=== PATIENT | female | born 1935 | race Two or more races ===

== ENCOUNTER 2020-06-17 04:04 | Inpatient (IN) | payer MEDICARE, OTHER ==
[~2020-06-17] VITALS: Ht 157.5 cm; Wt 99.0 kg
[2020-06-17] VITALS (7 sets, daily range): BP systolic 87–106; BP diastolic 46–88
[2020-06-17] MEDS ORDERED: SODIUM BICARBONATE 8.4% INJ 50ML SYRINGE ONE (04:27)
[2020-06-17] MEDS ORDERED: SODIUM BICARBONATE 8.4 % INJ 50ML VIAL IV ONE ×2 (04:30→07:00)
[2020-06-17 04:40] LABS: Basophils # (auto) 0 10 ^3/uL (0-0.2); Basophils % (auto) 0.2 % (0.0-2.0); Eosinophils # (auto) 0 10 ^3/uL (0-0.8); Eosinophils % (auto) 0.1 % (0.0-7.0); Hematocrit 41.9 % (36.0-46.0); Hemoglobin 13.9 g/dL (12.2-16.2); Lymphocytes # (auto) 1.1 10 ^3/uL (0.4-5.4); Lymphocytes % (auto) 16.4 % (10.0-50.0); Mean Corpuscular Hemoglobin 31.9 pg (28.0-32.0); Mean Corpuscular Hgb Conc. 33.2 g/dL (32.0-36.0); Mean Corpuscular Volume 95.9 fL (80.0-100.0); Monocytes # (auto) 0.5 10 ^3/uL (0-1.3); Monocytes % (auto) 7.1 % (0.0-12.0); Neutrophils # (auto) 5.1 10 ^3/uL (1.6-8.6); Neutrophils % (auto) 76.2 % (37.0-80.0); Nucleated Red Blood Cells % 0.1 %; Platelet Count (auto) 164 10^3/uL (140-450); Red Blood Cells 4.37 10^6/uL (4.0-5.20); Red Cell Distribution Width 13.4 % (11.8-14.3); White Blood Cell 6.6 10^3/uL (4.4-10.8)
[2020-06-17 05:04] LABS: Albumin 3.2 g/dL (3.4-5.0)
[2020-06-17 05:05] LABS: Lactic Acid w/Reflex 9.1 mmol/L (0.4-2.0)
[2020-06-17 05:09] LABS: BUN/Creatinine Ratio 14.8; Bilirubin, Total 0.3 mg/dL (0.2-1.0); Total Protein 8.1 g/dL (6.4-8.2)
[2020-06-17 05:13] LABS: INR 1.06 (0.9-1.15); Partial Thromboplastin Time 31.2 sec (23.0-31.2)
[2020-06-17] MEDS ORDERED: AZITHROMYCIN 500MG/ 250ML 250 ML IV ONE (07:00)
[2020-06-17] MEDS ORDERED: cefTRIAXone 1GM/50ML D5W 50 ML IV ONE (07:00)
[2020-06-17] MEDS ORDERED: DexAMETHasone SOD PHOS 10MG/1ML VIAL INJ IV ONE (07:00)
[2020-06-17] MEDS ORDERED: ENOXAPARIN SOD 80 MG/0.8ML SYRINGE SC ONE (07:00)
[2020-06-17] MEDS ORDERED: ZINC SULFATE 220mg CAP or TAB PO ONE (07:00)
[2020-06-17] MEDS ORDERED: ASCORBIC ACID 500 MG TAB PO ONE (07:00)
[2020-06-17 07:48] LABS: Urine Bacteria FEW /hpf (None Seen); Urine Blood 1+ /uL (Negative); Urine Specific Gravity 1.022 (1.001-1.035); Urine WBC 1 /hpf (0 - 5)
[2020-06-17] MEDS ORDERED: NITROGLYCERIN 0.4 MG SL TAB SL PRN (09:00)
[2020-06-17] MEDS ORDERED: MORPHINE SULF INJ 2 MG/ML SYRINGE 1ML IV PRN (09:00)
[2020-06-17] MEDS ORDERED: ACETAMINOPHEN 500 MG TAB PO PRN (09:45)
[2020-06-17] MEDS ORDERED: diphenhdrAMINE HCL 50 MG/1 ML VL IV PRN (09:45)
[2020-06-17] MEDS ORDERED: levoFLOXacin 500MG 100 ML IV ONE (09:45)
[2020-06-17] MEDS ORDERED: ONDANSETRON HCL 4 MG/2 ML VIAL IV PRN (09:45)
[2020-06-17] MEDS ORDERED: DEXTROSE (50%) 50ML SYRG IV PRN (09:45)
[2020-06-17] MEDS ORDERED: ALBUTEROL SULF HFA 90MCG INH 200DOSE IN PRN (09:45)
[2020-06-17] MEDS ORDERED: REMDESIVIR PER PHARMACY 0 ML IV SCH (09:45)
[2020-06-17] MEDS ORDERED: BUDESONIDE (INHALATION) 180 MCG IH IN SCH (10:00)
[2020-06-17] MEDS ORDERED: ENOXAPARIN SOD 40 MG/0.4 ML SYRINGE SC SCH (10:00)
[2020-06-17] MEDS ORDERED: FAMOTIDINE (10MG/ML) 2ML VL IV SCH (10:00)
[2020-06-17] MEDS ORDERED: FAMOTIDINE 20 MG TAB PO SCH (10:00)
[2020-06-17] MEDS ORDERED: levoFLOXacin 250MG 50 ML IV SCH (10:00)
[2020-06-17] MEDS: DexAMETHasone SOD PHOS 10MG/1ML VIAL INJ IV SCH (11:16)
[2020-06-17] MEDS: ZINC SULFATE 220mg CAP or TAB PO SCH (11:23)
[2020-06-17] MEDS: FAMOTIDINE (10MG/ML) 2ML VL IV SCH (11:23)
[2020-06-17] MEDS: ASCORBIC ACID 1,000 MG TAB PO SCH (11:25)
[2020-06-17] MEDS: CHOLECALCIFEROL (VITD3) 2,000 UNIT CAP/TAB PO SCH (11:25)
[2020-06-17] MEDS: FLORASTOR (S. BOULARDII) 250 MG CAP PO SCH ×2 (11:25→21:58)
[2020-06-17] MEDS ORDERED: LACTULOSE 20Gm/30ML SOLN PO PRN (11:45)
[2020-06-17] MEDS: ACCU-CHEK COMFORT CURVE STRIP VI SCH ×3 (11:58→21:50)
[2020-06-17] MEDS: InsuLIN REG 1unit/0.01ml Soln (100units/ml) SC SCH ×3 (11:59→21:58)
[2020-06-17] MEDS: ALBUTEROL SULF 2.5 MG/0.5ML(0.5%) NEB SOLN NEB PRN (18:54)
[2020-06-17] MEDS: BUDESONIDE (INHALATION) 0.5 MG/2 ML NEB NEB SCH (18:54)
[2020-06-18] VITALS (40 sets, daily range): BP systolic 89–156; BP diastolic 47–86
[2020-06-18] MEDS ORDERED: NOREPINEPHRINE 8 MG/250ML KIT 0 ML IV ONE (01:24)
[2020-06-18] MEDS: NOREPINEPHRINE 8 MG/250ML KIT 250 ML IV SCH (01:35)
[2020-06-18] MEDS ORDERED: SODIUM CHLORIDE 0.9% 1,000 ML IV ONE (03:00)
[2020-06-18] MEDS ORDERED: HYDROCORTISONE SOD SUCC 100 MG/2ML INJ VIAL IV ONE (03:00)
[2020-06-18] MEDS ORDERED: HEPARIN SODIUM (PORCINE) 5000 UNITS/ML 1ML VIAL SC SCH (06:00)
[2020-06-18 06:02] LABS: Basophils # (auto) 0 10 ^3/uL (0-0.2); Eosinophils # (auto) 0 10 ^3/uL (0-0.8); Hematocrit 39.1 % (36.0-46.0); Hemoglobin 13.3 g/dL (12.2-16.2); Lymphocytes # (auto) 0.6 10 ^3/uL (0.4-5.4); Lymphocytes % (auto) 6.8 % (10.0-50.0); Mean Corpuscular Hemoglobin 31.5 pg (28.0-32.0); Mean Corpuscular Hgb Conc. 33.9 g/dL (32.0-36.0); Mean Corpuscular Volume 92.8 fL (80.0-100.0); Monocytes # (auto) 0.6 10 ^3/uL (0-1.3); Monocytes % (auto) 6.7 % (0.0-12.0); Neutrophils # (auto) 7.5 10 ^3/uL (1.6-8.6); Neutrophils % (auto) 86.5 % (37.0-80.0); Nucleated Red Blood Cells % 0.1 %; Platelet Count (auto) 180 10^3/uL (140-450); Red Blood Cells 4.22 10^6/uL (4.0-5.20); Red Cell Distribution Width 13.1 % (11.8-14.3); White Blood Cell 8.6 10^3/uL (4.4-10.8)
[2020-06-18 06:22] LABS: Albumin 2.4 g/dL (3.4-5.0); Calcium 7.4 mg/dL (8.5-10.1); Lactic Acid w/Reflex 2.6 mmol/L (0.4-2.0); Potassium 3.2 mmol/L (3.5-5.1)
[2020-06-18 06:26] LABS: BUN/Creatinine Ratio 24.2; Bilirubin, Total 0.4 mg/dL (0.2-1.0); Total Protein 6.6 g/dL (6.4-8.2)
[2020-06-18] MEDS: BUDESONIDE (INHALATION) 0.5 MG/2 ML NEB NEB SCH ×2 (06:40→19:05)
[2020-06-18] MEDS ORDERED: IVERMECTIN 3 MG TAB PO ONE (07:00)
[2020-06-18] MEDS: ACCU-CHEK COMFORT CURVE STRIP VI SCH ×4 (07:00→22:35)
[2020-06-18] MEDS: InsuLIN REG 1unit/0.01ml Soln (100units/ml) SC SCH ×4 (07:00→22:39)
[2020-06-18] MEDS ORDERED: MORPHINE SULF INJ 2 MG/ML SYRINGE 1ML IV ONE (07:30)
[2020-06-18] MEDS ORDERED: POTASSIUM CHLORIDE 40 MEQ, LIDOCAINE 1% (LOCAL ANESTH.) 4 ML in SODIUM CHL 0.9% 250 ML IV ONE (08:30)
[2020-06-18] MEDS ORDERED: REMDESIVIR PER PHARMACY 0 ML IV SCH (09:00)
[2020-06-18] MEDS ORDERED: cefTRIAXone 1GM/50ML D5W 50 ML IV SCH (09:00)
[2020-06-18] MEDS ORDERED: AZITHROMYCIN 500MG/ 250ML 250 ML IV SCH (10:00)
[2020-06-18] MEDS ORDERED: ENOXAPARIN SOD 40 MG/0.4 ML SYRINGE SC SCH (10:00)
[2020-06-18] MEDS: DexAMETHasone SOD PHOS 10MG/1ML VIAL INJ IV SCH (10:06)
[2020-06-18] MEDS: FAMOTIDINE (10MG/ML) 2ML VL IV SCH (10:06)
[2020-06-18] MEDS: CHOLECALCIFEROL (VITD3) 2,000 UNIT CAP/TAB PO SCH (10:31)
[2020-06-18] MEDS: ASCORBIC ACID 1,000 MG TAB PO SCH (10:32)
[2020-06-18] MEDS: ZINC SULFATE 220mg CAP or TAB PO SCH (10:32)
[2020-06-18] MEDS: FLORASTOR (S. BOULARDII) 250 MG CAP PO SCH ×2 (10:32→22:35)
[2020-06-18] MEDS: ASPirin 81 mg TAB PO SCH (10:33)
[2020-06-18] MEDS ORDERED: ETOMIDATE (2MG/ML) 20ML VIAL IV ONE ×3 (12:47→13:14)
[2020-06-18] MEDS ORDERED: ROCURONIUM 10MG/ML 10ML VIAL IV ONE ×3 (12:47→13:15)
[2020-06-18] MEDS ORDERED: MIDAZOLAM DRIP 50 mg/50mL 0 ML IV ONE (12:47)
[2020-06-18] MEDS ORDERED: NOREPINEPHRINE 8 MG/250ML KIT 250 ML IV ONE (12:48)
[2020-06-18] MEDS ORDERED: fentaNYL Drip 2500mCg/250mlNS 0 ML IV ONE (12:48)
[2020-06-18] MEDS: fentaNYL Drip 2500mCg/250mlNS 250 ML IV SCH (13:00)
[2020-06-18] MEDS: PROPOFOL 100 ML IV SCH (13:15)
[2020-06-18] MEDS: MIDAZOLAM DRIP 50 mg/50mL 50 ML IV SCH ×2 (13:15→22:42)
[2020-06-18] MEDS ORDERED: ENOXAPARIN SOD 60 MG/0.6 ML SYRINGE SC ONE (14:45)
[2020-06-18] MEDS ORDERED: REMDESIVIR 200 MG in NS 210ml LOADING DOSE ADULT IV ONE (15:00)
[2020-06-18] MEDS: levoFLOXacin 250MG 50 ML IV SCH (15:13)
[2020-06-18] MEDS: ALBUTEROL SULF 2.5 MG/0.5ML(0.5%) NEB SOLN NEB PRN (19:06)
[2020-06-19] VITALS (75 sets, daily range): BP systolic 91–132; BP diastolic 46–70
[2020-06-19 05:38] LABS: Basophils # (auto) 0 10 ^3/uL (0-0.2); Basophils % (auto) 0.2 % (0.0-2.0); Eosinophils # (auto) 0 10 ^3/uL (0-0.8); Hematocrit 34.5 % (36.0-46.0); Hemoglobin 11.9 g/dL (12.2-16.2); Lymphocytes # (auto) 0.4 10 ^3/uL (0.4-5.4); Lymphocytes % (auto) 4.6 % (10.0-50.0); Mean Corpuscular Hemoglobin 31.7 pg (28.0-32.0); Mean Corpuscular Hgb Conc. 34.5 g/dL (32.0-36.0); Monocytes # (auto) 0.6 10 ^3/uL (0-1.3); Monocytes % (auto) 7.7 % (0.0-12.0); Neutrophils # (auto) 7.2 10 ^3/uL (1.6-8.6); Neutrophils % (auto) 87.5 % (37.0-80.0); Platelet Count (auto) 202 10^3/uL (140-450); Red Blood Cells 3.75 10^6/uL (4.0-5.20); Red Cell Distribution Width 13.2 % (11.8-14.3); White Blood Cell 8.2 10^3/uL (4.4-10.8)
[2020-06-19 05:55] LABS: Calcium 8.3 mg/dL (8.5-10.1); Potassium 3.7 mmol/L (3.5-5.1)
[2020-06-19 05:58] LABS: BUN/Creatinine Ratio 21.4
[2020-06-19] MEDS: BUDESONIDE (INHALATION) 0.5 MG/2 ML NEB NEB SCH ×2 (06:13→23:16)
[2020-06-19] MEDS: ALBUTEROL SULF 2.5 MG/0.5ML(0.5%) NEB SOLN NEB PRN ×2 (06:13→23:16)
[2020-06-19] MEDS: ACCU-CHEK COMFORT CURVE STRIP VI SCH ×4 (06:40→22:00)
[2020-06-19] MEDS: MIDAZOLAM DRIP 50 mg/50mL 50 ML IV SCH ×2 (06:40→22:33)
[2020-06-19] MEDS: InsuLIN REG 1unit/0.01ml Soln (100units/ml) SC SCH ×3 (06:41→17:00)
[2020-06-19 08:57] LABS: Cholesterol 121 mg/dL (< 200); HDL Cholesterol 39 mg/dL (40-59); LDL Cholesterol 77 mg/dL (< 100); Triglycerides 126 mg/dL (< 150)
[2020-06-19 08:59] LABS: Urine Bacteria NONE SEEN /hpf (None Seen); Urine Blood 2+ /uL (Negative); Urine Mucus FEW (None Seen); Urine WBC 6 /hpf (0 - 5)
[2020-06-19] MEDS: levoFLOXacin 250MG 50 ML IV SCH (09:23)
[2020-06-19] MEDS: DexAMETHasone SOD PHOS 10MG/1ML VIAL INJ IV SCH (09:23)
[2020-06-19] MEDS: FLORASTOR (S. BOULARDII) 250 MG CAP PO SCH (09:24)
[2020-06-19] MEDS: FAMOTIDINE (10MG/ML) 2ML VL IV SCH (09:24)
[2020-06-19] MEDS: ZINC SULFATE 220mg CAP or TAB PO SCH (09:24)
[2020-06-19] MEDS: CHOLECALCIFEROL (VITD3) 2,000 UNIT CAP/TAB PO SCH (09:24)
[2020-06-19] MEDS: ASCORBIC ACID 1,000 MG TAB PO SCH (09:24)
[2020-06-19] MEDS: ASPirin 81 mg TAB PO SCH (09:24)
[2020-06-19] MEDS: ENOXAPARIN SOD 60 MG/0.6 ML SYRINGE SC SCH (09:25)
[2020-06-19 09:32] LABS: Sodium Urine 7 mmol/L (40-220)
[2020-06-19 09:49] LABS: Creatinine, Urine 158 mg/dL (30.0-125.0)
[2020-06-19] MEDS ORDERED: LEVO25TA6 PO (09:54)
[2020-06-19] MEDS ORDERED: SIMV10TA84 PO (09:54)
[2020-06-19] MEDS ORDERED: ENOXAPARIN SOD 40 MG/0.4 ML SYRINGE SC SCH (10:00)
[2020-06-19] MEDS ORDERED: ROCURONIUM 10MG/ML 10ML VIAL IV PRN (12:00)
[2020-06-19] MEDS: ATRACURIUM BESYLATE 1,000 MG in D5W 5% 150 ML IV SCH (14:45)
[2020-06-19] MEDS ORDERED: REMDESIVIR 100mg 100 MG in SODIUM CHL 0.9% 230 ML IV SCH (15:00)
[2020-06-19] MEDS ORDERED: REMDESIVIR PER PHARMACY 0 ML IV SCH (15:15)
[2020-06-19] MEDS ORDERED: REMDESIVIR 200 MG in NS 210ml LOADING DOSE ADULT IV ONE (15:15)
[2020-06-19] MEDS: PROPOFOL 100 ML IV SCH ×2 (15:59→22:34)
[2020-06-19] MEDS: fentaNYL Drip 2500mCg/250mlNS 250 ML IV SCH (16:15)
[2020-06-19] MEDS: NOREPINEPHRINE 8 MG/250ML KIT 250 ML IV SCH (19:51)
[2020-06-20] VITALS (102 sets, daily range): BP systolic 73–133; BP diastolic 42–65
[2020-06-20] MEDS: InsuLIN REG 1unit/0.01ml Soln (100units/ml) SC SCH ×5 (01:09→22:00)
[2020-06-20] MEDS: FLORASTOR (S. BOULARDII) 250 MG CAP PO SCH ×3 (01:10→22:59)
[2020-06-20] MEDS: ALBUTEROL SULF 2.5 MG/0.5ML(0.5%) NEB SOLN NEB PRN ×2 (06:03→22:17)
[2020-06-20] MEDS: BUDESONIDE (INHALATION) 0.5 MG/2 ML NEB NEB SCH ×2 (06:03→22:17)
[2020-06-20] MEDS: fentaNYL Drip 2500mCg/250mlNS 250 ML IV SCH ×2 (06:28→22:16)
[2020-06-20] MEDS: ACCU-CHEK COMFORT CURVE STRIP VI SCH ×4 (07:00→23:01)
[2020-06-20 08:18] LABS: Albumin 2.3 g/dL (3.4-5.0); Magnesium 2.4 mg/dL (1.6-2.6); Potassium 3.8 mmol/L (3.5-5.1)
[2020-06-20 08:19] LABS: INR 1.03 (0.9-1.15)
[2020-06-20 08:25] LABS: BUN/Creatinine Ratio 18.4; Bilirubin, Total 0.2 mg/dL (0.2-1.0); Total Protein 6.2 g/dL (6.4-8.2)
[2020-06-20] MEDS ORDERED: FUROSEMIDE 20 MG/2 ML VIAL IV ONE (09:45)
[2020-06-20] MEDS: LINEZOLID 600MG/300ML 300 ML IV SCH ×2 (10:00→22:59)
[2020-06-20] MEDS: FAMOTIDINE (10MG/ML) 2ML VL IV SCH (11:40)
[2020-06-20] MEDS: ASPirin 81 mg TAB PO SCH (11:40)
[2020-06-20] MEDS: ZINC SULFATE 220mg CAP or TAB PO SCH (11:40)
[2020-06-20] MEDS: levoFLOXacin 250MG 50 ML IV SCH (11:40)
[2020-06-20] MEDS: DexAMETHasone SOD PHOS 10MG/1ML VIAL INJ IV SCH (11:40)
[2020-06-20] MEDS: ENOXAPARIN SOD 60 MG/0.6 ML SYRINGE SC SCH (11:41)
[2020-06-20] MEDS: ASCORBIC ACID 1,000 MG TAB PO SCH (11:41)
[2020-06-20] MEDS: CHOLECALCIFEROL (VITD3) 2,000 UNIT CAP/TAB PO SCH (11:41)
[2020-06-20] MEDS: ATRACURIUM BESYLATE 1,000 MG in D5W 5% 150 ML IV SCH (14:45)
[2020-06-20] MEDS: REMDESIVIR 100mg 100 MG in SODIUM CHL 0.9% 230 ML IV SCH (15:50)
[2020-06-20] MEDS: NOREPINEPHRINE 8 MG/250ML KIT 250 ML IV SCH (19:45)
[2020-06-20] MEDS: PROPOFOL 100 ML IV SCH (21:36)
[2020-06-20] MEDS: MIDAZOLAM DRIP 50 mg/50mL 50 ML IV SCH (23:00)
[2020-06-21] VITALS (95 sets, daily range): BP systolic 11–191; BP diastolic 41–96
[2020-06-21] MEDS: PROPOFOL 100 ML IV SCH ×2 (03:04→10:04)
[2020-06-21] MEDS: MIDAZOLAM DRIP 50 mg/50mL 50 ML IV SCH ×3 (03:17→15:07)
[2020-06-21 06:43] LABS: Potassium 4.2 mmol/L (3.5-5.1)
[2020-06-21 06:49] LABS: BUN/Creatinine Ratio 26.2; Calcium 8.2 mg/dL (8.5-10.1)
[2020-06-21] MEDS: ACCU-CHEK COMFORT CURVE STRIP VI SCH ×3 (07:00→17:00)
[2020-06-21] MEDS: InsuLIN REG 1unit/0.01ml Soln (100units/ml) SC SCH ×3 (07:00→17:00)
[2020-06-21] MEDS: ALBUTEROL SULF 2.5 MG/0.5ML(0.5%) NEB SOLN NEB PRN ×2 (07:05→18:31)
[2020-06-21] MEDS: BUDESONIDE (INHALATION) 0.5 MG/2 ML NEB NEB SCH ×2 (07:06→18:31)
[2020-06-21 09:09] LABS: Alanine Aminotransferase 39 U/L (13-56); Albumin 2.2 g/dL (3.4-5.0); Alkaline Phosphatase 70 U/L (45-117); Aspartate Aminotransferase 65 U/L (15-37); Bilirubin, Direct < 0.1 mg/dL (0-0.2); Bilirubin, Total 0.3 mg/dL (0.2-1.0); Total Protein 6.2 g/dL (6.4-8.2)
[2020-06-21] MEDS: DexAMETHasone SOD PHOS 10MG/1ML VIAL INJ IV SCH (09:43)
[2020-06-21] MEDS: FAMOTIDINE (10MG/ML) 2ML VL IV SCH (09:44)
[2020-06-21] MEDS: levoFLOXacin 250MG 50 ML IV SCH (09:44)
[2020-06-21] MEDS: CHOLECALCIFEROL (VITD3) 2,000 UNIT CAP/TAB PO SCH (09:45)
[2020-06-21] MEDS: ASCORBIC ACID 1,000 MG TAB PO SCH (09:45)
[2020-06-21] MEDS: ZINC SULFATE 220mg CAP or TAB PO SCH (09:45)
[2020-06-21] MEDS: ASPirin 81 mg TAB PO SCH (09:45)
[2020-06-21] MEDS: LINEZOLID 600MG/300ML 300 ML IV SCH ×2 (09:45→22:25)
[2020-06-21] MEDS: FLORASTOR (S. BOULARDII) 250 MG CAP PO SCH ×2 (09:45→22:00)
[2020-06-21] MEDS: ENOXAPARIN SOD 60 MG/0.6 ML SYRINGE SC SCH (09:46)
[2020-06-21] MEDS ORDERED: FUROSEMIDE 20 MG/2 ML VIAL IV SCH (10:00)
[2020-06-21] MEDS ORDERED: DOPamine 1600MCG/ML D5W 250 ML IV SCH (10:45)
[2020-06-21] MEDS: fentaNYL Drip 2500mCg/250mlNS 250 ML IV SCH (12:20)
[2020-06-21] MEDS: ATRACURIUM BESYLATE 1,000 MG in D5W 5% 150 ML IV SCH (14:45)
[2020-06-21] MEDS: REMDESIVIR 100mg 100 MG in SODIUM CHL 0.9% 230 ML IV SCH (15:02)
[2020-06-21 15:10] LABS: Basophils # (auto) 0 10 ^3/uL (0-0.2); Basophils % (auto) 0.1 % (0.0-2.0); Eosinophils # (auto) 0 10 ^3/uL (0-0.8); Hematocrit 39.5 % (36.0-46.0); Hemoglobin 12.9 g/dL (12.2-16.2); Lymphocytes # (auto) 0.4 10 ^3/uL (0.4-5.4); Lymphocytes % (auto) 3.7 % (10.0-50.0); Mean Corpuscular Hemoglobin 31.4 pg (28.0-32.0); Mean Corpuscular Hgb Conc. 32.7 g/dL (32.0-36.0); Mean Corpuscular Volume 95.9 fL (80.0-100.0); Monocytes # (auto) 0.8 10 ^3/uL (0-1.3); Monocytes % (auto) 7.2 % (0.0-12.0); Neutrophils # (auto) 10.2 10 ^3/uL (1.6-8.6); Nucleated Red Blood Cells % 0.3 %; Platelet Count (auto) 259 10^3/uL (140-450); Red Blood Cells 4.12 10^6/uL (4.0-5.20); White Blood Cell 11.5 10^3/uL (4.4-10.8)
[2020-06-21] MEDS: NOREPINEPHRINE 8 MG/250ML KIT 250 ML IV SCH (20:28)
[2020-06-22] VITALS (107 sets, daily range): BP systolic 92–126; BP diastolic 48–64
[2020-06-22] MEDS: fentaNYL Drip 2500mCg/250mlNS 250 ML IV SCH (00:21)
[2020-06-22] MEDS: ACCU-CHEK COMFORT CURVE STRIP VI SCH ×5 (00:29→23:47)
[2020-06-22] MEDS: InsuLIN REG 1unit/0.01ml Soln (100units/ml) SC SCH ×4 (00:54→18:01)
[2020-06-22] MEDS: NOREPINEPHRINE 8 MG/250ML KIT 250 ML IV SCH (01:30)
[2020-06-22] MEDS: MIDAZOLAM DRIP 50 mg/50mL 50 ML IV SCH (03:03)
[2020-06-22 06:08] LABS: Potassium 3.9 mmol/L (3.5-5.1)
[2020-06-22] MEDS: BUDESONIDE (INHALATION) 0.5 MG/2 ML NEB NEB SCH ×2 (06:11→22:17)
[2020-06-22] MEDS: ALBUTEROL SULF 2.5 MG/0.5ML(0.5%) NEB SOLN NEB PRN ×2 (06:11→22:17)
[2020-06-22 06:17] LABS: Albumin 2.2 g/dL (3.4-5.0); BUN/Creatinine Ratio 32.2; Bilirubin, Total 0.4 mg/dL (0.2-1.0); Calcium 8.1 mg/dL (8.5-10.1); Total Protein 6.2 g/dL (6.4-8.2)
[2020-06-22] MEDS: DexAMETHasone SOD PHOS 10MG/1ML VIAL INJ IV SCH (09:08)
[2020-06-22] MEDS: ASPirin 81 mg TAB PO SCH (09:09)
[2020-06-22] MEDS: FAMOTIDINE (10MG/ML) 2ML VL IV SCH (09:09)
[2020-06-22] MEDS: levoFLOXacin 250MG 50 ML IV SCH (09:09)
[2020-06-22] MEDS: LINEZOLID 600MG/300ML 300 ML IV SCH ×2 (09:09→22:00)
[2020-06-22] MEDS: ENOXAPARIN SOD 60 MG/0.6 ML SYRINGE SC SCH (09:10)
[2020-06-22] MEDS: FLORASTOR (S. BOULARDII) 250 MG CAP PO SCH ×2 (09:10→22:00)
[2020-06-22] MEDS: ASCORBIC ACID 1,000 MG TAB PO SCH (09:10)
[2020-06-22] MEDS: ZINC SULFATE 220mg CAP or TAB PO SCH (09:10)
[2020-06-22] MEDS: CHOLECALCIFEROL (VITD3) 2,000 UNIT CAP/TAB PO SCH (09:10)
[2020-06-22] MEDS: PROPOFOL 100 ML IV SCH (13:00)
[2020-06-22] MEDS: ATRACURIUM BESYLATE 1,000 MG in D5W 5% 150 ML IV SCH (14:45)
[2020-06-22] MEDS: REMDESIVIR 100mg 100 MG in SODIUM CHL 0.9% 230 ML IV SCH (15:11)
[2020-06-23] VITALS (103 sets, daily range): BP systolic 81–184; BP diastolic 46–87
[2020-06-23] MEDS: InsuLIN REG 1unit/0.01ml Soln (100units/ml) SC SCH ×4 (00:09→17:48)
[2020-06-23] MEDS: NOREPINEPHRINE 8 MG/250ML KIT 250 ML IV SCH (01:30)
[2020-06-23] MEDS: fentaNYL Drip 2500mCg/250mlNS 250 ML IV SCH (01:54)
[2020-06-23] MEDS: ACCU-CHEK COMFORT CURVE STRIP VI SCH ×3 (06:00→17:48)
[2020-06-23 06:26] LABS: Potassium 4.4 mmol/L (3.5-5.1)
[2020-06-23 06:33] LABS: Albumin 2.2 g/dL (3.4-5.0); BUN/Creatinine Ratio 41.9; Bilirubin, Total 0.5 mg/dL (0.2-1.0); Calcium 8.1 mg/dL (8.5-10.1); Magnesium 2.6 mg/dL (1.6-2.6); Total Protein 6.3 g/dL (6.4-8.2)
[2020-06-23] MEDS ORDERED: DOPamine 1600MCG/ML D5W 250 ML IV ONE (08:45)
[2020-06-23] MEDS: DOPamine 1600MCG/ML D5W 250 ML IV SCH (09:12)
[2020-06-23] MEDS: BUDESONIDE (INHALATION) 0.5 MG/2 ML NEB NEB SCH ×2 (10:00→18:27)
[2020-06-23] MEDS: ALBUTEROL SULF 2.5 MG/0.5ML(0.5%) NEB SOLN NEB PRN ×2 (10:00→18:27)
[2020-06-23] MEDS: CHOLECALCIFEROL (VITD3) 2,000 UNIT CAP/TAB PO SCH (10:00)
[2020-06-23] MEDS: DexAMETHasone SOD PHOS 10MG/1ML VIAL INJ IV SCH (10:02)
[2020-06-23] MEDS: levoFLOXacin 250MG 50 ML IV SCH (10:02)
[2020-06-23] MEDS: FAMOTIDINE (10MG/ML) 2ML VL IV SCH (10:02)
[2020-06-23] MEDS: ASPirin 81 mg TAB PO SCH (10:04)
[2020-06-23] MEDS: ZINC SULFATE 220mg CAP or TAB PO SCH (10:04)
[2020-06-23] MEDS: LINEZOLID 600MG/300ML 300 ML IV SCH (10:04)
[2020-06-23] MEDS: FLORASTOR (S. BOULARDII) 250 MG CAP PO SCH ×2 (10:05→22:00)
[2020-06-23] MEDS: ASCORBIC ACID 1,000 MG TAB PO SCH (10:05)
[2020-06-23] MEDS: ENOXAPARIN SOD 60 MG/0.6 ML SYRINGE SC SCH (10:05)
[2020-06-23] MEDS: MIDAZOLAM DRIP 50 mg/50mL 50 ML IV SCH (13:00)
[2020-06-23] MEDS: PROPOFOL 100 ML IV SCH (13:00)
[2020-06-23] MEDS: ATRACURIUM BESYLATE 1,000 MG in D5W 5% 150 ML IV SCH (14:45)
[2020-06-23] MEDS ORDERED: Glucerna 1.2 Cal 1Liter BOTTLE GT SCH (17:00)
[2020-06-24] VITALS (106 sets, daily range): BP systolic 87–164; BP diastolic 45–80
[2020-06-24] MEDS: NOREPINEPHRINE 8 MG/250ML KIT 250 ML IV SCH (01:30)
[2020-06-24 05:38] LABS: BUN/Creatinine Ratio 55.5; Potassium 4.9 mmol/L (3.5-5.1)
[2020-06-24 05:39] LABS: Mean Corpuscular Hemoglobin 31.4 pg (28.0-32.0); Mean Corpuscular Hgb Conc. 33.4 g/dL (32.0-36.0); Mean Corpuscular Volume 93.9 fL (80.0-100.0); Platelet Count (auto) 263 10^3/uL (140-450); Red Blood Cells 3.84 10^6/uL (4.0-5.20); Red Cell Distribution Width 14.3 % (11.8-14.3); White Blood Cell 9.9 10^3/uL (4.4-10.8)
[2020-06-24 05:56] LABS: Basophils % (manual) 0 (0.0-2.0); Blast Cells 0; Eosinophils % (manual) 0 (0-7); Metamyelocytes % 0; Myelocytes % 0; Promyelocytes % 0
[2020-06-24] MEDS: ACCU-CHEK COMFORT CURVE STRIP VI SCH ×4 (06:00→17:56)
[2020-06-24] MEDS: InsuLIN REG 1unit/0.01ml Soln (100units/ml) SC SCH ×4 (06:00→17:58)
[2020-06-24] MEDS: BUDESONIDE (INHALATION) 0.5 MG/2 ML NEB NEB SCH ×2 (06:17→22:40)
[2020-06-24] MEDS: ALBUTEROL SULF 2.5 MG/0.5ML(0.5%) NEB SOLN NEB PRN ×2 (06:17→22:40)
[2020-06-24] MEDS ORDERED: POTASSIUM CHLORIDE 40 MEQ, LIDOCAINE 1% (LOCAL ANESTH.) 4 ML in SODIUM CHL 0.9% 250 ML IV ONE (06:45)
[2020-06-24 07:00] LABS: Band Neutrophils % (manual) 5; Lymphocytes % (manual) 4 (10.0-50.0); Monocytes % (manual) 2 (0-12); Reactive Lymphocytes 1
[2020-06-24] MEDS: DOPamine 1600MCG/ML D5W 250 ML IV SCH (09:00)
[2020-06-24] MEDS: ENOXAPARIN SOD 60 MG/0.6 ML SYRINGE SC SCH (10:00)
[2020-06-24] MEDS: FLORASTOR (S. BOULARDII) 250 MG CAP PO SCH ×2 (10:00→21:11)
[2020-06-24] MEDS: ZINC SULFATE 220mg CAP or TAB PO SCH (10:00)
[2020-06-24] MEDS: CHOLECALCIFEROL (VITD3) 2,000 UNIT CAP/TAB PO SCH (10:00)
[2020-06-24] MEDS: ASCORBIC ACID 1,000 MG TAB PO SCH (10:00)
[2020-06-24] MEDS: DexAMETHasone SOD PHOS 10MG/1ML VIAL INJ IV SCH (10:38)
[2020-06-24] MEDS: levoFLOXacin 250MG 50 ML IV SCH (10:39)
[2020-06-24] MEDS: FAMOTIDINE (10MG/ML) 2ML VL IV SCH (10:39)
[2020-06-24] MEDS: ASPirin 81 mg TAB PO SCH (10:39)
[2020-06-24] MEDS: fentaNYL Drip 2500mCg/250mlNS 250 ML IV SCH (12:46)
[2020-06-24] MEDS: PROPOFOL 100 ML IV SCH (12:46)
[2020-06-24] MEDS: MIDAZOLAM DRIP 50 mg/50mL 50 ML IV SCH (12:46)
[2020-06-24] MEDS: ATRACURIUM BESYLATE 1,000 MG in D5W 5% 150 ML IV SCH (12:47)
[2020-06-25] VITALS (102 sets, daily range): BP systolic 90–159; BP diastolic 36–77
[2020-06-25] MEDS: NOREPINEPHRINE 8 MG/250ML KIT 250 ML IV SCH (01:30)
[2020-06-25 05:44] LABS: Hemoglobin 11.4 g/dL (12.2-16.2); Mean Corpuscular Hemoglobin 31.7 pg (28.0-32.0); Mean Corpuscular Hgb Conc. 33.4 g/dL (32.0-36.0); Platelet Count (auto) 231 10^3/uL (140-450); Red Blood Cells 3.58 10^6/uL (4.0-5.20); Red Cell Distribution Width 14.2 % (11.8-14.3); White Blood Cell 7.9 10^3/uL (4.4-10.8)
[2020-06-25 05:56] LABS: Calcium 8.6 mg/dL (8.5-10.1); Potassium 5.3 mmol/L (3.5-5.1)
[2020-06-25 05:57] LABS: Basophils % (manual) 0 (0.0-2.0); Blast Cells 0; Eosinophils % (manual) 0 (0-7); Reactive Lymphocytes 0
[2020-06-25 05:59] LABS: BUN/Creatinine Ratio 72.6
[2020-06-25] MEDS: InsuLIN REG 1unit/0.01ml Soln (100units/ml) SC SCH ×4 (06:00→18:00)
[2020-06-25] MEDS: ACCU-CHEK COMFORT CURVE STRIP VI SCH ×4 (06:00→18:00)
[2020-06-25] MEDS: BUDESONIDE (INHALATION) 0.5 MG/2 ML NEB NEB SCH ×2 (06:13→18:28)
[2020-06-25] MEDS: ALBUTEROL SULF 2.5 MG/0.5ML(0.5%) NEB SOLN NEB PRN ×2 (06:14→18:28)
[2020-06-25 06:42] LABS: Band Neutrophils % (manual) 2; Lymphocytes % (manual) 6 (10.0-50.0); Metamyelocytes % 2; Monocytes % (manual) 2 (0-12); Myelocytes % 2; Promyelocytes % 1
[2020-06-25] MEDS ORDERED: SODIUM ZIRCONIUM CYCL 10 GM PAK PO ONE (07:00)
[2020-06-25] MEDS: DOPamine 1600MCG/ML D5W 250 ML IV SCH (09:00)
[2020-06-25] MEDS: levoFLOXacin 250MG 50 ML IV SCH (10:00)
[2020-06-25] MEDS: ENOXAPARIN SOD 60 MG/0.6 ML SYRINGE SC SCH (10:00)
[2020-06-25] MEDS: FLORASTOR (S. BOULARDII) 250 MG CAP PO SCH ×2 (10:00→22:00)
[2020-06-25] MEDS: ASPirin 81 mg TAB PO SCH (10:00)
[2020-06-25] MEDS: DexAMETHasone SOD PHOS 10MG/1ML VIAL INJ IV SCH (10:00)
[2020-06-25] MEDS: CHOLECALCIFEROL (VITD3) 2,000 UNIT CAP/TAB PO SCH (10:00)
[2020-06-25] MEDS: ZINC SULFATE 220mg CAP or TAB PO SCH (10:00)
[2020-06-25] MEDS: FAMOTIDINE (10MG/ML) 2ML VL IV SCH (10:00)
[2020-06-25] MEDS: ASCORBIC ACID 1,000 MG TAB PO SCH (10:00)
[2020-06-25] MEDS: fentaNYL Drip 2500mCg/250mlNS 250 ML IV SCH (13:00)
[2020-06-25] MEDS: PROPOFOL 100 ML IV SCH (13:00)
[2020-06-25] MEDS: MIDAZOLAM DRIP 50 mg/50mL 50 ML IV SCH (13:00)
[2020-06-25] MEDS: ATRACURIUM BESYLATE 1,000 MG in D5W 5% 150 ML IV SCH (14:11)
[2020-06-26] VITALS (106 sets, daily range): BP systolic 87–153; BP diastolic 34–65
[2020-06-26] MEDS: InsuLIN REG 1unit/0.01ml Soln (100units/ml) SC SCH ×4 (00:50→17:28)
[2020-06-26] MEDS: NOREPINEPHRINE 8 MG/250ML KIT 250 ML IV SCH (05:00)
[2020-06-26 05:42] LABS: Hematocrit 30.6 % (36.0-46.0); Hemoglobin 10.3 g/dL (12.2-16.2); Mean Corpuscular Hgb Conc. 33.6 g/dL (32.0-36.0); Mean Corpuscular Volume 95.2 fL (80.0-100.0); Platelet Count (auto) 224 10^3/uL (140-450); Red Blood Cells 3.21 10^6/uL (4.0-5.20); Red Cell Distribution Width 14.5 % (11.8-14.3); White Blood Cell 9.5 10^3/uL (4.4-10.8)
[2020-06-26] MEDS: BUDESONIDE (INHALATION) 0.5 MG/2 ML NEB NEB SCH ×2 (05:47→18:59)
[2020-06-26] MEDS: ALBUTEROL SULF 2.5 MG/0.5ML(0.5%) NEB SOLN NEB PRN ×2 (05:47→18:59)
[2020-06-26] MEDS: ACCU-CHEK COMFORT CURVE STRIP VI SCH ×4 (05:52→17:28)
[2020-06-26 05:54] LABS: Basophils % (manual) 0 (0.0-2.0); Blast Cells 0; Eosinophils % (manual) 0 (0-7); Myelocytes % 0; Promyelocytes % 0; Reactive Lymphocytes 0
[2020-06-26 06:03] LABS: BUN/Creatinine Ratio 71.1; Calcium 8.1 mg/dL (8.5-10.1)
[2020-06-26 06:28] LABS: Potassium 5.8 mmol/L (3.5-5.1)
[2020-06-26] MEDS ORDERED: SODIUM ZIRCONIUM CYCL 10 GM PAK PO ONE (07:15)
[2020-06-26] MEDS: DOPamine 1600MCG/ML D5W 250 ML IV SCH (09:00)
[2020-06-26] MEDS: SODIUM ZIRCONIUM CYCL 10 GM PAK GT SCH ×3 (09:45→22:00)
[2020-06-26] MEDS: SOD CHL 0.45% 1,000 ML IV SCH ×2 (09:45→20:45)
[2020-06-26] MEDS: ZINC SULFATE 220mg CAP or TAB PO SCH (10:00)
[2020-06-26] MEDS: ASPirin 81 mg TAB PO SCH (10:00)
[2020-06-26] MEDS: DexAMETHasone SOD PHOS 10MG/1ML VIAL INJ IV SCH (10:00)
[2020-06-26] MEDS: ASCORBIC ACID 1,000 MG TAB PO SCH (10:00)
[2020-06-26] MEDS: FAMOTIDINE (10MG/ML) 2ML VL IV SCH (10:00)
[2020-06-26] MEDS: levoFLOXacin 250MG 50 ML IV SCH (10:00)
[2020-06-26] MEDS: CHOLECALCIFEROL (VITD3) 2,000 UNIT CAP/TAB PO SCH (10:00)
[2020-06-26] MEDS: FLORASTOR (S. BOULARDII) 250 MG CAP PO SCH ×2 (10:00→22:00)
[2020-06-26] MEDS: ENOXAPARIN SOD 60 MG/0.6 ML SYRINGE SC SCH (10:00)
[2020-06-26] MEDS: fentaNYL Drip 2500mCg/250mlNS 250 ML IV SCH (12:02)
[2020-06-26] MEDS: MIDAZOLAM DRIP 50 mg/50mL 50 ML IV SCH ×2 (13:00→19:15)
[2020-06-26] MEDS: PROPOFOL 100 ML IV SCH (13:00)
[2020-06-26 13:07] LABS: Band Neutrophils % (manual) 7; Lymphocytes % (manual) 2 (10.0-50.0); Metamyelocytes % 1; Monocytes % (manual) 2 (0-12)
[2020-06-26] MEDS: ATRACURIUM BESYLATE 1,000 MG in D5W 5% 150 ML IV SCH (13:08)
[2020-06-27] VITALS (106 sets, daily range): BP systolic 104–136; BP diastolic 38–74
[2020-06-27] MEDS: ACCU-CHEK COMFORT CURVE STRIP VI SCH ×5 (00:11→23:50)
[2020-06-27] MEDS: InsuLIN REG 1unit/0.01ml Soln (100units/ml) SC SCH ×5 (00:16→23:52)
[2020-06-27] MEDS: MIDAZOLAM DRIP 50 mg/50mL 50 ML IV SCH ×3 (05:13→18:32)
[2020-06-27] MEDS: fentaNYL Drip 2500mCg/250mlNS 250 ML IV SCH ×2 (05:14→17:59)
[2020-06-27] MEDS: SODIUM ZIRCONIUM CYCL 10 GM PAK GT SCH ×2 (06:00→14:02)
[2020-06-27] MEDS: ALBUTEROL SULF 2.5 MG/0.5ML(0.5%) NEB SOLN NEB PRN ×2 (06:07→18:53)
[2020-06-27] MEDS: BUDESONIDE (INHALATION) 0.5 MG/2 ML NEB NEB SCH ×2 (06:08→18:53)
[2020-06-27] MEDS: SOD CHL 0.45% 1,000 ML IV SCH ×3 (06:09→16:59)
[2020-06-27] MEDS: DOPamine 1600MCG/ML D5W 250 ML IV SCH (09:00)
[2020-06-27] MEDS: FAMOTIDINE (10MG/ML) 2ML VL IV SCH (09:28)
[2020-06-27] MEDS: levoFLOXacin 250MG 50 ML IV SCH (09:28)
[2020-06-27] MEDS: DexAMETHasone SOD PHOS 10MG/1ML VIAL INJ IV SCH (09:28)
[2020-06-27] MEDS: FLORASTOR (S. BOULARDII) 250 MG CAP PO SCH ×2 (09:28→22:00)
[2020-06-27] MEDS: ASPirin 81 mg TAB PO SCH (09:28)
[2020-06-27] MEDS: ZINC SULFATE 220mg CAP or TAB PO SCH (09:28)
[2020-06-27] MEDS: ASCORBIC ACID 1,000 MG TAB PO SCH (09:29)
[2020-06-27] MEDS: CHOLECALCIFEROL (VITD3) 2,000 UNIT CAP/TAB PO SCH (09:29)
[2020-06-27] MEDS: ENOXAPARIN SOD 60 MG/0.6 ML SYRINGE SC SCH (09:29)
[2020-06-27] MEDS ORDERED: Glucerna 1.2 Cal 1Liter BOTTLE GT SCH (10:00)
[2020-06-27] MEDS: PROPOFOL 100 ML IV SCH (13:00)
[2020-06-27] MEDS: ATRACURIUM BESYLATE 1,000 MG in D5W 5% 150 ML IV SCH (14:45)
[2020-06-28] VITALS (99 sets, daily range): BP systolic 101–158; BP diastolic 40–67
[2020-06-28] MEDS: NOREPINEPHRINE 8 MG/250ML KIT 250 ML IV SCH (01:30)
[2020-06-28] MEDS: InsuLIN REG 1unit/0.01ml Soln (100units/ml) SC SCH ×3 (06:00→18:00)
[2020-06-28] MEDS: ACCU-CHEK COMFORT CURVE STRIP VI SCH ×3 (06:00→18:03)
[2020-06-28 07:57] LABS: Hematocrit 31.9 % (36.0-46.0); Hemoglobin 10.5 g/dL (12.2-16.2); Mean Corpuscular Hemoglobin 31.7 pg (28.0-32.0); Mean Corpuscular Volume 95.9 fL (80.0-100.0); Platelet Count (auto) 164 10^3/uL (140-450); Red Blood Cells 3.33 10^6/uL (4.0-5.20); Red Cell Distribution Width 14.8 % (11.8-14.3); White Blood Cell 12.1 10^3/uL (4.4-10.8)
[2020-06-28 08:03] LABS: Basophils % (manual) 0 (0.0-2.0); Blast Cells 0; Eosinophils % (manual) 0 (0-7); Metamyelocytes % 0; Monocytes % (manual) 0 (0-12); Myelocytes % 0; Promyelocytes % 0; Reactive Lymphocytes 0
[2020-06-28 08:36] LABS: Band Neutrophils % (manual) 18; Lymphocytes % (manual) 8 (10.0-50.0)
[2020-06-28] MEDS: DOPamine 1600MCG/ML D5W 250 ML IV SCH (09:00)
[2020-06-28] MEDS: ZINC SULFATE 220mg CAP or TAB PO SCH (09:55)
[2020-06-28] MEDS: ASPirin 81 mg TAB PO SCH (09:55)
[2020-06-28] MEDS: levoFLOXacin 250MG 50 ML IV SCH (09:55)
[2020-06-28] MEDS: CHOLECALCIFEROL (VITD3) 2,000 UNIT CAP/TAB PO SCH (09:55)
[2020-06-28] MEDS: FAMOTIDINE (10MG/ML) 2ML VL IV SCH (09:55)
[2020-06-28] MEDS: ENOXAPARIN SOD 60 MG/0.6 ML SYRINGE SC SCH (09:55)
[2020-06-28] MEDS: DexAMETHasone SOD PHOS 10MG/1ML VIAL INJ IV SCH (09:55)
[2020-06-28] MEDS: FLORASTOR (S. BOULARDII) 250 MG CAP PO SCH ×2 (09:55→22:00)
[2020-06-28] MEDS: ASCORBIC ACID 1,000 MG TAB PO SCH (09:55)
[2020-06-28] MEDS: BUDESONIDE (INHALATION) 0.5 MG/2 ML NEB NEB SCH ×2 (10:19→19:06)
[2020-06-28] MEDS: ALBUTEROL SULF 2.5 MG/0.5ML(0.5%) NEB SOLN NEB PRN ×2 (10:19→19:06)
[2020-06-28] MEDS ORDERED: CATHFLO ACTIVASE (ALTEPLASE) 2 MG VIAL IV ONE (10:30)
[2020-06-28 11:16] LABS: Albumin 1.8 g/dL (3.4-5.0); BUN/Creatinine Ratio 68.5; Bilirubin, Total 0.5 mg/dL (0.2-1.0); Calcium 7.9 mg/dL (8.5-10.1)
[2020-06-28] MEDS: SOD CHL 0.45% 1,000 ML IV SCH ×2 (11:45→21:45)
[2020-06-28] MEDS: MIDAZOLAM DRIP 50 mg/50mL 50 ML IV SCH (11:48)
[2020-06-28] MEDS ORDERED: SODIUM ZIRCONIUM CYCL 10 GM PAK PO ONE (12:30)
[2020-06-28] MEDS ORDERED: InsuLIN REG 1unit/0.01ml Soln (100units/ml) IV ONE (12:30)
[2020-06-28] MEDS ORDERED: DEXTROSE (50%) 50ML SYRG IV ONE (12:30)
[2020-06-28] MEDS: PROPOFOL 100 ML IV SCH (13:00)
[2020-06-28] MEDS ORDERED: Nepro With Carb Steady 1 Liter Bottle GT SCH (14:45)
[2020-06-28] MEDS: ATRACURIUM BESYLATE 1,000 MG in D5W 5% 150 ML IV SCH (14:45)
[2020-06-28 16:02] LABS: Creatinine, Urine 41 mg/dL (30.0-125.0); Sodium Urine 14 mmol/L (40-220)
[2020-06-29] VITALS (92 sets, daily range): BP systolic 87–145; BP diastolic 42–73
[2020-06-29] MEDS: NOREPINEPHRINE 8 MG/250ML KIT 250 ML IV SCH ×3 (01:45→23:15)
[2020-06-29 05:16] LABS: Hemoglobin 9.6 g/dL (12.2-16.2); Mean Corpuscular Hemoglobin 31.8 pg (28.0-32.0); Mean Corpuscular Hgb Conc. 33.3 g/dL (32.0-36.0); Mean Corpuscular Volume 95.6 fL (80.0-100.0); Platelet Count (auto) 133 10^3/uL (140-450); Red Blood Cells 3.03 10^6/uL (4.0-5.20); Red Cell Distribution Width 14.5 % (11.8-14.3); White Blood Cell 12.4 10^3/uL (4.4-10.8)
[2020-06-29 05:24] LABS: Basophils % (manual) 0 (0.0-2.0); Blast Cells 0; Eosinophils % (manual) 0 (0-7); Metamyelocytes % 0; Myelocytes % 0; Promyelocytes % 0; Reactive Lymphocytes 0
[2020-06-29 05:28] LABS: BUN/Creatinine Ratio 65.6; Calcium 7.4 mg/dL (8.5-10.1); Potassium 5.1 mmol/L (3.5-5.1)
[2020-06-29] MEDS: ACCU-CHEK COMFORT CURVE STRIP VI SCH ×4 (06:19→17:21)
[2020-06-29] MEDS: InsuLIN REG 1unit/0.01ml Soln (100units/ml) SC SCH ×4 (06:19→17:21)
[2020-06-29] MEDS: ALBUTEROL SULF 2.5 MG/0.5ML(0.5%) NEB SOLN NEB PRN ×2 (07:14→18:20)
[2020-06-29] MEDS: BUDESONIDE (INHALATION) 0.5 MG/2 ML NEB NEB SCH ×2 (07:15→18:20)
[2020-06-29] MEDS: SOD CHL 0.45% 1,000 ML IV SCH ×2 (07:45→16:51)
[2020-06-29 07:52] LABS: Band Neutrophils % (manual) 2; Lymphocytes % (manual) 1 (10.0-50.0); Monocytes % (manual) 3 (0-12)
[2020-06-29] MEDS: levoFLOXacin 250MG 50 ML IV SCH (08:27)
[2020-06-29] MEDS: DexAMETHasone SOD PHOS 10MG/1ML VIAL INJ IV SCH (08:27)
[2020-06-29] MEDS: FAMOTIDINE (10MG/ML) 2ML VL IV SCH (08:28)
[2020-06-29] MEDS: FLORASTOR (S. BOULARDII) 250 MG CAP PO SCH ×2 (08:29→22:30)
[2020-06-29] MEDS: ZINC SULFATE 220mg CAP or TAB PO SCH (08:29)
[2020-06-29] MEDS: ASPirin 81 mg TAB PO SCH (08:29)
[2020-06-29] MEDS: SODIUM ZIRCONIUM CYCL 10 GM PAK PO SCH (08:30)
[2020-06-29] MEDS: ASCORBIC ACID 1,000 MG TAB PO SCH (08:30)
[2020-06-29] MEDS: CHOLECALCIFEROL (VITD3) 2,000 UNIT CAP/TAB PO SCH (08:31)
[2020-06-29] MEDS: ENOXAPARIN SOD 60 MG/0.6 ML SYRINGE SC SCH (08:31)
[2020-06-29 08:44] LABS: Potassium 5.8 mmol/L (3.5-5.1)
[2020-06-29] MEDS: DOPamine 1600MCG/ML D5W 250 ML IV SCH (09:00)
[2020-06-29] MEDS: ENOXAPARIN SOD 100 MG/1 ML SYRINGE SC SCH ×2 (09:07→22:30)
[2020-06-29] MEDS ORDERED: FUROSEMIDE 40 MG/4 ML VIAL IV ONE (10:45)
[2020-06-29] MEDS: PROPOFOL 100 ML IV SCH (12:16)
[2020-06-29] MEDS: fentaNYL Drip 2500mCg/250mlNS 250 ML IV SCH (12:16)
[2020-06-29] MEDS: MIDAZOLAM DRIP 50 mg/50mL 50 ML IV SCH (12:17)
[2020-06-29] MEDS: ATRACURIUM BESYLATE 1,000 MG in D5W 5% 150 ML IV SCH (14:24)
[2020-06-30] VITALS (93 sets, daily range): BP systolic 89–149; BP diastolic 35–75
[2020-06-30] MEDS ORDERED: ATRACURIUM BESYLATE (10 MG/ ML) 10 ML VIAL ONE (00:18)
[2020-06-30] MEDS: SOD CHL 0.45% 1,000 ML IV SCH ×2 (03:55→13:03)
[2020-06-30 05:10] LABS: Hemoglobin 10.2 g/dL (12.2-16.2); Mean Corpuscular Hemoglobin 31.5 pg (28.0-32.0); Mean Corpuscular Hgb Conc. 32.9 g/dL (32.0-36.0); Mean Corpuscular Volume 95.8 fL (80.0-100.0); Platelet Count (auto) 110 10^3/uL (140-450); Red Blood Cells 3.24 10^6/uL (4.0-5.20); White Blood Cell 17.3 10^3/uL (4.4-10.8)
[2020-06-30 05:12] LABS: Basophils % (manual) 0 (0.0-2.0); Blast Cells 0; Eosinophils % (manual) 0 (0-7); Metamyelocytes % 0; Myelocytes % 0; Promyelocytes % 0; Reactive Lymphocytes 0
[2020-06-30] MEDS: InsuLIN REG 1unit/0.01ml Soln (100units/ml) SC SCH ×4 (05:33→17:35)
[2020-06-30] MEDS: ACCU-CHEK COMFORT CURVE STRIP VI SCH ×5 (05:33→23:51)
[2020-06-30 05:39] LABS: Calcium 7.3 mg/dL (8.5-10.1); Potassium 4.6 mmol/L (3.5-5.1)
[2020-06-30] MEDS: BUDESONIDE (INHALATION) 0.5 MG/2 ML NEB NEB SCH ×2 (07:09→18:43)
[2020-06-30 08:30] LABS: Band Neutrophils % (manual) 7; Lymphocytes % (manual) 2 (10.0-50.0); Monocytes % (manual) 1 (0-12)
[2020-06-30] MEDS: DOPamine 1600MCG/ML D5W 250 ML IV SCH (09:00)
[2020-06-30] MEDS: MIDAZOLAM DRIP 50 mg/50mL 50 ML IV SCH ×2 (09:10→20:48)
[2020-06-30] MEDS: ATRACURIUM BESYLATE 1,000 MG in D5W 5% 150 ML IV SCH (09:30)
[2020-06-30] MEDS: FAMOTIDINE (10MG/ML) 2ML VL IV SCH (09:36)
[2020-06-30] MEDS: DexAMETHasone SOD PHOS 10MG/1ML VIAL INJ IV SCH (09:36)
[2020-06-30] MEDS: ASPirin 81 mg TAB PO SCH (09:36)
[2020-06-30] MEDS: ZINC SULFATE 220mg CAP or TAB PO SCH (09:36)
[2020-06-30] MEDS: levoFLOXacin 250MG 50 ML IV SCH (09:36)
[2020-06-30] MEDS: ENOXAPARIN SOD 100 MG/1 ML SYRINGE SC SCH (09:37)
[2020-06-30] MEDS: CHOLECALCIFEROL (VITD3) 2,000 UNIT CAP/TAB PO SCH (09:37)
[2020-06-30] MEDS: SODIUM ZIRCONIUM CYCL 10 GM PAK PO SCH (09:37)
[2020-06-30] MEDS: ASCORBIC ACID 1,000 MG TAB PO SCH (09:37)
[2020-06-30] MEDS: FLORASTOR (S. BOULARDII) 250 MG CAP PO SCH ×2 (09:37→23:50)
[2020-06-30] MEDS ORDERED: PIPERACILLIN-TAZOB 3.375GM 100 ML IV ONE (10:00)
[2020-06-30] MEDS: PIPERACILLIN-TAZOB 3.375GM 100 ML IV SCH ×3 (10:29→23:51)
[2020-06-30] MEDS: PROPOFOL 100 ML IV SCH ×3 (13:02→21:00)
[2020-06-30] MEDS: fentaNYL Drip 2500mCg/250mlNS 250 ML IV SCH (13:10)
[2020-06-30] MEDS ORDERED: FUROSEMIDE 20 MG/2 ML VIAL IV ONE (14:00)
[2020-06-30 16:15] LABS: Urine Bacteria NONE SEEN /hpf (None Seen); Urine Blood 3+ /uL (Negative); Urine Budding Yeast MANY /hpf (None Seen); Urine Mucus FEW (None Seen); Urine Specific Gravity 1.018 (1.001-1.035); Urine WBC 1259 /hpf (0 - 5)
[2020-06-30] MEDS: ALBUTEROL SULF 2.5 MG/0.5ML(0.5%) NEB SOLN NEB PRN (18:43)
[2020-07-01] VITALS (88 sets, daily range): BP systolic 87–167; BP diastolic 32–77
[2020-07-01] MEDS: InsuLIN REG 1unit/0.01ml Soln (100units/ml) SC SCH ×4 (00:03→17:26)
[2020-07-01] MEDS: fentaNYL Drip 2500mCg/250mlNS 250 ML IV SCH ×2 (00:37→14:00)
[2020-07-01] MEDS: PROPOFOL 100 ML IV SCH ×4 (00:38→10:33)
[2020-07-01] MEDS: MIDAZOLAM DRIP 50 mg/50mL 50 ML IV SCH ×4 (00:39→21:40)
[2020-07-01] MEDS: NOREPINEPHRINE 8 MG/250ML KIT 250 ML IV SCH ×3 (03:16→23:01)
[2020-07-01] MEDS: ACCU-CHEK COMFORT CURVE STRIP VI SCH ×3 (06:06→17:26)
[2020-07-01] MEDS: PIPERACILLIN-TAZOB 3.375GM 100 ML IV SCH ×3 (06:11→17:26)
[2020-07-01 06:31] LABS: Eosinophils # (auto) 0 10 ^3/uL (0-0.8); Hemoglobin 8.3 g/dL (12.2-16.2); Lymphocytes # (auto) 0.1 10 ^3/uL (0.4-5.4); Monocytes # (auto) 0.2 10 ^3/uL (0-1.3)
[2020-07-01 06:34] LABS: Basophils # (auto) 0.1 10 ^3/uL (0-0.2); Basophils % (auto) 0.4 % (0.0-2.0); Lymphocytes % (auto) 0.7 % (10.0-50.0); Mean Corpuscular Hemoglobin 32.1 pg (28.0-32.0); Mean Corpuscular Volume 97.3 fL (80.0-100.0); Monocytes % (auto) 1.4 % (0.0-12.0); Neutrophils # (auto) 15.8 10 ^3/uL (1.6-8.6); Neutrophils % (auto) 97.5 % (37.0-80.0); Nucleated Red Blood Cells % 0.2 %; Platelet Count (auto) 78 10^3/uL (140-450); Red Blood Cells 2.57 10^6/uL (4.0-5.20); Red Cell Distribution Width 14.6 % (11.8-14.3); White Blood Cell 16.2 10^3/uL (4.4-10.8)
[2020-07-01 06:47] LABS: BUN/Creatinine Ratio 35.5; Calcium 6.9 mg/dL (8.5-10.1)
[2020-07-01 06:50] LABS: Potassium 5.8 mmol/L (3.5-5.1)
[2020-07-01] MEDS: BUDESONIDE (INHALATION) 0.5 MG/2 ML NEB NEB SCH ×2 (07:08→18:29)
[2020-07-01] MEDS: DOPamine 1600MCG/ML D5W 250 ML IV SCH (09:00)
[2020-07-01] MEDS: FAMOTIDINE (10MG/ML) 2ML VL IV SCH (09:06)
[2020-07-01] MEDS: DexAMETHasone SOD PHOS 10MG/1ML VIAL INJ IV SCH (09:06)
[2020-07-01] MEDS: SODIUM ZIRCONIUM CYCL 10 GM PAK PO SCH (09:07)
[2020-07-01] MEDS: FLORASTOR (S. BOULARDII) 250 MG CAP PO SCH ×2 (09:07→22:13)
[2020-07-01] MEDS: ASPirin 81 mg TAB PO SCH (09:07)
[2020-07-01] MEDS: ASCORBIC ACID 1,000 MG TAB PO SCH (09:07)
[2020-07-01] MEDS: ZINC SULFATE 220mg CAP or TAB PO SCH (09:07)
[2020-07-01] MEDS: CHOLECALCIFEROL (VITD3) 2,000 UNIT CAP/TAB PO SCH (09:08)
[2020-07-01] MEDS ORDERED: FUROSEMIDE 40 MG/4 ML VIAL IV ONE (09:45)
[2020-07-01] MEDS ORDERED: SODIUM BICARBONATE 8.4% INJ 50ML SYRINGE IV ONE (09:45)
[2020-07-01] MEDS ORDERED: InsuLIN REG 1unit/0.01ml Soln (100units/ml) IV ONE (09:45)
[2020-07-01] MEDS ORDERED: DEXTROSE (50%) 50ML SYRG IV ONE (09:45)
[2020-07-01] MEDS ORDERED: ALBUTEROL SULF 2.5 MG/0.5ML(0.5%) NEB SOLN NEB ONE (09:45)
[2020-07-01] MEDS: ATRACURIUM BESYLATE 1,000 MG in D5W 5% 150 ML IV SCH ×2 (11:14→17:45)
[2020-07-01] MEDS ORDERED: BUMETANIDE 2.5mg/10ml (0.25 mg/ml) INJ IV ONE (14:15)
[2020-07-01] MEDS: ALBUMIN 25% 100 ML IV SCH ×2 (14:15→22:14)
[2020-07-01] MEDS: FUROSEMIDE INJECTION 100 MG in D5W 5% 100 ML IV SCH ×2 (14:15→19:59)
[2020-07-01] MEDS: ALBUTEROL SULF 2.5 MG/0.5ML(0.5%) NEB SOLN NEB PRN (18:29)
[2020-07-02] VITALS (87 sets, daily range): BP systolic 91–181; BP diastolic 32–83
[2020-07-02] MEDS: PIPERACILLIN-TAZOB 3.375GM 100 ML IV SCH ×2 (00:13→05:59)
[2020-07-02] MEDS: ACCU-CHEK COMFORT CURVE STRIP VI SCH ×4 (00:14→18:00)
[2020-07-02] MEDS: FUROSEMIDE INJECTION 100 MG in D5W 5% 100 ML IV SCH ×5 (00:14→20:15)
[2020-07-02] MEDS: InsuLIN REG 1unit/0.01ml Soln (100units/ml) SC SCH ×4 (00:48→18:00)
[2020-07-02] MEDS: DOPamine 1600MCG/ML D5W 250 ML IV SCH (01:14)
[2020-07-02] MEDS: PROPOFOL 100 ML IV SCH ×6 (01:15→17:15)
[2020-07-02] MEDS: fentaNYL Drip 2500mCg/250mlNS 250 ML IV SCH ×2 (01:16→13:48)
[2020-07-02] MEDS: MIDAZOLAM DRIP 50 mg/50mL 50 ML IV SCH ×5 (01:17→17:15)
[2020-07-02 05:56] LABS: Hematocrit 19.5 % (36.0-46.0); Mean Corpuscular Hemoglobin 31.4 pg (28.0-32.0); Mean Corpuscular Hgb Conc. 32.8 g/dL (32.0-36.0); Mean Corpuscular Volume 95.7 fL (80.0-100.0); Platelet Count (auto) 65 10^3/uL (140-450); Red Blood Cells 2.04 10^6/uL (4.0-5.20); Red Cell Distribution Width 14.4 % (11.8-14.3)
[2020-07-02 06:01] LABS: Basophils % (manual) 0 (0.0-2.0); Blast Cells 0; Eosinophils % (manual) 0 (0-7); Hemoglobin 6.4 g/dL (12.2-16.2); Lymphocytes % (manual) 0 (10.0-50.0); Myelocytes % 0; Promyelocytes % 0; Reactive Lymphocytes 0
[2020-07-02 06:02] LABS: BUN/Creatinine Ratio 31.7; Calcium 6.8 mg/dL (8.5-10.1)
[2020-07-02] MEDS: ALBUMIN 25% 100 ML IV SCH (06:02)
[2020-07-02 06:18] LABS: Potassium 5.7 mmol/L (3.5-5.1)
[2020-07-02 07:39] LABS: Band Neutrophils % (manual) 20; Metamyelocytes % 2; Monocytes % (manual) 1 (0-12)
[2020-07-02] MEDS: NOREPINEPHRINE 8 MG/250ML KIT 250 ML IV SCH (08:00)
[2020-07-02] MEDS: ZINC SULFATE 220mg CAP or TAB PO SCH (09:56)
[2020-07-02] MEDS: ASCORBIC ACID 1,000 MG TAB PO SCH (09:56)
[2020-07-02] MEDS: ASPirin 81 mg TAB PO SCH (09:56)
[2020-07-02] MEDS: CHOLECALCIFEROL (VITD3) 2,000 UNIT CAP/TAB PO SCH (09:56)
[2020-07-02] MEDS: FLORASTOR (S. BOULARDII) 250 MG CAP PO SCH (09:56)
[2020-07-02] MEDS: SODIUM ZIRCONIUM CYCL 10 GM PAK PO SCH ×2 (10:00→16:24)
[2020-07-02] MEDS: DexAMETHasone SOD PHOS 10MG/1ML VIAL INJ IV SCH (10:06)
[2020-07-02] MEDS: FAMOTIDINE (10MG/ML) 2ML VL IV SCH (10:06)
[2020-07-02] MEDS: BUDESONIDE (INHALATION) 0.5 MG/2 ML NEB NEB SCH ×2 (10:36→18:55)
[2020-07-02] MEDS: ALBUTEROL SULF 2.5 MG/0.5ML(0.5%) NEB SOLN NEB PRN ×2 (10:36→18:55)
[2020-07-02] MEDS ORDERED: DOPamine 3200MCG/ML 250 ML IV SCH (12:45)
[2020-07-02] MEDS ORDERED: NOREPINEPHRINE BITARTRATE 32 MG in SODIUM CHL 0.9% 218 ML IV SCH (12:45)
[2020-07-02] MEDS: PIPERACILLIN-TAZOB 2.25GM 50 ML IV SCH ×2 (13:39→19:00)
[2020-07-02] MEDS ORDERED: SODIUM BICARBONATE 8.4% INJ 50ML SYRINGE IV ONE (21:36)
[2020-07-02] MEDS ORDERED: CALCIUM CHLOR(10%) 100MG/ML 10ML SYRINGE IV ONE (21:36)
[2020-07-02] MEDS ORDERED: EPINEPHrine HCL 1 MG/10 ML SYRG IV ONE (21:36)
[2020-07-04] MEDS ORDERED: FAMOTIDINE (10MG/ML) 2ML VL IV SCH (10:00)
== END 2020-07-02 21:37 | DRG 720 ==
LOC: EDBD 04:04 → ER 04:10 → TELE 04:11 → DOU IN ICU 06-18 15:40
PROVIDERS: ADMIT Internal Medicine; ATTEND Internal Medicine Pulmonary Disease
PROC: 5A09457 Assistance with Respiratory Ventilation, 24-96 Consecutive Hours, Continuous Positive Airway Pressure (ICD-10-PCS; 2020-06-17)
PROC: XW033E5 Introduction of Remdesivir Anti-infective into Peripheral Vein, Percutaneous Approach, New Technology Group 5 (ICD-10-PCS; 2020-06-17)
PROC: 5A1955Z Respiratory Ventilation, Greater than 96 Consecutive Hours (ICD-10-PCS; 2020-06-18)
PROC: 0BH17EZ Insertion of Endotracheal Airway into Trachea, Via Natural or Artificial Opening (ICD-10-PCS; 2020-06-18)
PROC: 06HM33Z Insertion of Infusion Device into Right Femoral Vein, Percutaneous Approach (ICD-10-PCS; 2020-06-18)
PROC: XW13325 Transfusion of Convalescent Plasma (Nonautologous) into Peripheral Vein, Percutaneous Approach, New Technology Group 5 (ICD-10-PCS; principal; 2020-06-19)
PROC: 30233N1 Transfusion of Nonautologous Red Blood Cells into Peripheral Vein, Percutaneous Approach (ICD-10-PCS; 2020-07-02)
DX: A41.89 Other specified sepsis (principal); U07.1 COVID-19; N17.0 Acute kidney failure with tubular necrosis; J12.82 Pneumonia due to coronavirus disease 2019; E11.21 Type 2 diabetes mellitus with diabetic nephropathy; E78.5 Hyperlipidemia, unspecified; I21.4 Non-ST elevation (NSTEMI) myocardial infarction; J80 Acute respiratory distress syndrome; E11.22 Type 2 diabetes mellitus with diabetic chronic kidney disease; D89.839 Cytokine release syndrome, grade unspecified; R65.21 Severe sepsis with septic shock; E43 Unspecified severe protein-calorie malnutrition; E87.6 Hypokalemia; J98.11 Atelectasis; E66.9 Obesity, unspecified; E07.9 Disorder of thyroid, unspecified; N18.31 Chronic kidney disease, stage 3a; E87.5 Hyperkalemia; Z83.3 Family history of diabetes mellitus; G93.40 Encephalopathy, unspecified; Z68.37 Body mass index [BMI] 37.0-37.9, adult; E87.0 Hyperosmolality and hypernatremia; D62 Acute posthemorrhagic anemia
CPT/HCPCS: 36415; 36600; 51702; 71045; 76775; 80048; 80053; 80061; 80076; 81001; 82306; 82550; 82570; 82805; 82962; 83036; 83605; 83735; 83880; 83935; 84132; 84133; 84300; 84443; 84484; 85007; 85025; 85027; 85379; 85610; 85730; 86850; 86900; 86901; 86920; 87040; 87070; 87077; 87081; 87086; 87088; 87205; 87426; 93005; 93306; 93970; 94003; 94640; 94660; 96374; 99291; G0378; J0696; J1100; J1265; J1815; J1956; J2001; J2250; J2405; J2543; J2704; J3490; J7060; P9047